=== PATIENT | female | born 1985 | race Caucasian/White ===

== ENCOUNTER 2017-04-08 12:41 | Emergency (ER) | payer OTHER ==
[2017-04-08 13:05] VITALS: BP 118/74
--- NOTE | 2017-04-08 13:09 | UC ---
Throat Pain/Nasal Joseph HPI - HPI Summary HPI Summary: Pt presents with [address] Denies cough, fever, chills, SOB, sinus pain/ pressure/congestion, sick contacts, N/V/D/C. Has not tried anything OTC. No other pain. - History of Current Complaint Chief Complaint: UCRespiratory Stated Complaint: SORE THROAT Hx Obtained From: Patient Hx Last Menstrual Period: 03/13/17 ?: No Onset/Duration: Gradual Onset Severity: Moderate Pain Intensity: 5 Pain Scale Used: 0-10 Numeric Cough: Nonproductive Associated Signs & Symptoms: Positive: Hoarseness. Negative: Drooling, Wheezing - Allergies/Home Medications Allergies/Adverse Reactions: Allergies Allergy/AdvReac Type Severity Reaction Status Date / Time No Known Allergies Allergy Verified 08/25/14 09:19 PMH/Surg Hx/FS Hx/Imm Hx Previously Healthy: Yes - Surgical History Surgical History: Yes Surgery Procedure, Year, and Place: LAP-APPENDECTOMY 09/2013 @ [facility] – [place] - Family History Known Family History: Positive: Unknown - Social History Occupation: Employed Full-time Lives: With Family Alcohol Use: None Substance Use Type: None Smoking Status (MU): Never Smoked Tobacco Type: Cigarettes - Immunization History Most Recent Influenza Vaccination: UNSURE Most Recent Tetanus Shot: 11/27/15 Most Recent Pneumonia Vaccination: NEVER Review of Systems Constitutional: Negative Skin: Negative Eyes: Negative ENT: Sore Throat Respiratory: Negative Cardiovascular: Negative Gastrointestinal: Negative Is Patient Immunocompromised?: No All Other Systems Reviewed And Are Negative: Yes Physical Exam Triage Information Reviewed: Yes Appearance: Well-Appearing, Well-Nourished Vital Signs: Initial Vital Signs Temp 97 F 04/08/17 13:01 Pulse 78 04/08/17 13:01 Resp 16 04/08/17 13:01 BP 118/74 04/08/17 13:01 Pulse Ox 100 04/08/17 13:01 Vital Signs Reviewed: Yes ENT: Positive: Hearing grossly normal, Pharyngeal erythema, TMs normal, Tonsillar swelling, Uvula midline. Negative: Nasal congestion, Nasal drainage, TM bulging, TM dull, TM red, Tonsillar exudate, Hoarse voice Neck: Positive: Supple, Nontender, No Lymphadenopathy Respiratory: Positive: Chest non-tender, Lungs clear, Normal breath sounds, No respiratory distress, No accessory muscle use Cardiovascular: Positive: RRR, No Murmur, Pulses Normal Neurological: Positive: Alert Psychological: Positive: Age Appropriate Behavior Throat Pain/Nasal Course/Dx - Course Course Of Treatment: POC strep positive in office. Amoxicillin 500mg BID for 10 days Assessment/Plan: POC strep positive in office. Amoxicillin 500mg BID for 10 days - Differential Dx/Diagnosis Differential Diagnosis/HQI/PQRI: Influenza, Mononucleosis, Tonsillitis, URI Provider Diagnoses: Strep throat Discharge - Discharge Plan Condition: Stable Disposition: HOME Prescriptions: Amoxicillin PO (*) [Amoxicillin 500 MG CAP*] 500 mg PO Q12H #20 cap Patient Education Materials: Strep Throat (ED) Referrals: Aparna Seo MD [Primary Care Provider] - Additional Instructions: 1) Amoxicillin 500mg twice a day for 10 days. Eat yogurt or take an OTC probiotic to help prevent yeast infection due to the antibiotic. If you develop a fever, SOB, chest pain, new or worsening symptoms - please call our office or go to ED
== END 2017-04-08 13:45 | disposition home or self-care (01) ==
LOC: UCEAST 12:41
DX: J02.0 Streptococcal pharyngitis (principal)
CPT/HCPCS: 87651; 99212; G0463

== ENCOUNTER 2017-05-16 08:46 | Emergency (ER) | payer OTHER ==
[2017-05-16 08:53] VITALS: BP 117/67
--- NOTE | 2017-05-16 08:56 | UC ---
Throat Pain/Nasal Joseph HPI - HPI Summary HPI Summary: 32 y/o female presents to the urgent care c/o sore throat and dry cough since Thursday05/13/2017. Pt reports pain when swallowing is 7/10 associated with fever. she has been taking Ibuprofen 400mg PO to alleviate symptoms. Pt states her son is also sick with similar symptoms, he is in a daycare. Pt denies SOB, ear pain, abdominal pain, DONATO, N/V/D - History of Current Complaint Stated Complaint: SORE THROAT Time Seen by Provider: 05/16/17 08:52 Hx Obtained From: Patient Hx Last Menstrual Period: 03/13/17 Onset/Duration: Gradual Onset, Lasting Days - 3 days, Still Present Severity: Moderate Pain Intensity: 8 Pain Scale Used: 0-10 Numeric Cough: Nonproductive Associated Signs & Symptoms: Positive: Nasal Discharge, Fever - Epiglottits Risk Factors Epiglottis Risk Factors: Negative - Allergies/Home Medications Allergies/Adverse Reactions: Allergies Allergy/AdvReac Type Severity Reaction Status Date / Time No Known Allergies Allergy Verified 05/16/17 08:50 PMH/Surg Hx/FS Hx/Imm Hx Previously Healthy: Yes Endocrine History: Hypothyroidism - Surgical History Surgical History: Yes Surgery Procedure, Year, and Place: [place]EN[place]CTOMY 09/2013 @ [facility] [place] - Family History Known Family History: Positive: Hypertension, Diabetes - Social History Occupation: Employed Full-time Lives: With Family Alcohol Use: None Substance Use Type: None Smoking Status (MU): Never Smoked Tobacco Type: Cigarettes - Immunization History Most Recent Influenza Vaccination: UNSURE Most Recent Tetanus Shot: 11/27/15 Most Recent Pneumonia Vaccination: NEVER Review of Systems Constitutional: Fever Skin: Negative Eyes: Negative ENT: Sore Throat, Nasal Discharge Respiratory: Cough Cardiovascular: Negative Gastrointestinal: Negative Genitourinary: Negative Motor: Negative Neurovascular: Negative Musculoskeletal: Negative Neurological: Negative Psychological: Negative Is Patient Immunocompromised?: No All Other Systems Reviewed And Are Negative: Yes Physical Exam Triage Information Reviewed: Yes - Additional Comments VITAL SIGNS: Reviewed. GENERAL: Patient is a well developed and nourished female who is sitting comfortable in the examining table. Patient is not in any acute respiratory distress. HEAD AND FACE: No signs of trauma. No ecchymosis, hematomas or skull depressions. No sinus tenderness. EYES: PERRLA, EOMI x 2, No injected conjunctiva, no nystagmus. No photophobia. EARS: Hearing grossly intact. Ear canals and tympanic membranes are within normal limits. Nose: erythematous, edematous nasal mucosa with clear nasal discharge MOUTH: Positive pharynx with erythema, no exudates, no palatal petechiae. B/L tonsillar enlargement with no exudate. Uvula in midline. NECK: Supple, trachea is midline, Positive anterior cervical lymphadenopathy, no JVD, no carotid bruit, no c-spine tenderness, neck with full ROM. No meningeal signs, no Kernig's or brudzinskis signs. CHEST: Symmetric, no tenderness at palpation LUNGS: Clear to auscultation bilaterally. No wheezing or crackles. CVS: Regular rate and rhythm, S1 and S2 present, no murmurs or gallops appreciated. ABDOMEN: Soft, non-tender. No signs of distention. No rebound no guarding, and no masses palpated. Bowel sounds are normal. EXTREMITIES: FROM in all major joints, no edema, no cyanosis or clubbing. NEURO: Alert and oriented x 3. No acute neurological deficits. Speech is normal and follows commands. SKIN: Dry and warm Throat Pain/Nasal Course/Dx - Course Course Of Treatment: 32 y/o female presents to the urgent care c/o sore throat and dry cough since Thursday05/13/2017. Pt reports pain when swallowing is 7/ 10 associated with fever. she has been taking Ibuprofen 400mg PO to alleviate symptoms. Pt states her son is also sick with similar symptoms, he is in a daycare. Pt denies SOB, ear pain, abdominal pain, DONATO, N/V/D. Hx obtained. Pt with an URI on physical examination. Rapid strep ordered, result: negative..Pt Rx ibuprofen PO to alleviates symptoms of pain and swelling. Advised on hand washing to avoid spreading. Pt advised to rest, eat well and avoid strenuous exercise. If symptoms do not improve or worsen advised to return to the urgent care or f/u with her PCP for further evaluation and treatment. Pt understood and agreed with plan of care. - Differential Dx/Diagnosis Differential Diagnosis/HQI/PQRI: Influenza, Laryngitis, Mononucleosis, Otitis Media, Pharyngitis, Sinusitis, Tonsillitis, URI Provider Diagnoses: 1-upper respiratory infection Discharge - Discharge Plan Condition: Stable Disposition: HOME Prescriptions: Ibuprofen TAB* [Motrin TAB* 800 MG] 800 mg PO Q6H #20 tab Patient Education Materials: Upper Respiratory Infection (ED) Referrals: Aparna Seo MD [Primary Care Provider] - If Needed Additional Instructions: 1-Please take ibuprofen PO q6-8hrs prn as instructed after meals to alleviate pain and swelling. Increase fluid intake, eat well, rest and avoid strenuous exercise 2-If symptoms do not improve or worsen please return to the urgent care or f/u with your PCP for further evaluation and treatment.
== END 2017-05-16 09:23 | disposition home or self-care (01) ==
LOC: UCEAST 08:46
DX: J06.9 Acute upper respiratory infection, unspecified (principal)
CPT/HCPCS: 87651; 99212; G0463

== ENCOUNTER 2019-02-25 09:04 | Emergency (ER) | payer OTHER ==
[2019-02-25 09:16] VITALS: BP 122/74
--- NOTE | 2019-02-25 09:36 | UC ---
Throat Pain/Nasal Joseph HPI - HPI Summary HPI Summary: ONSET YESTERDAY OF SORE THROAT AND PAIN WITH SWALLOWING WITH SUBJECTIVE FEVER. NECK FEELS SWOLLEN. NO COUGH OR CONGESTION. - History of Current Complaint Chief Complaint: UCRespiratory Stated Complaint: SORE THROAT Time Seen by Provider: 02/25/19 09:15 Hx Obtained From: Patient Hx Last Menstrual Period: 02/25/19 Onset/Duration: Gradual Onset, Lasting Hours, Still Present Severity: Moderate Pain Intensity: 5 Pain Scale Used: 0-10 Numeric Cough: None Associated Signs & Symptoms: Positive: Fever - Allergies/Home Medications Allergies/Adverse Reactions: Allergies Allergy/AdvReac Type Severity Reaction Status Date / Time No Known Allergies Allergy Verified 02/25/19 09:17 Home Medications: Home Medications Iron 18 mg PO DAILY 02/25/19 [History Confirmed 02/25/19] PMH/Surg Hx/FS Hx/Imm Hx Endocrine History: Hypothyroidism - Surgical History Surgical History: Yes Surgery Procedure, Year, and Place: LAP-APPENDECTOMY 09/2013 @ [facility] – [place] - Family History Known Family History: Positive: Hypertension, Diabetes - Social History Alcohol Use: None Substance Use Type: None Smoking Status (MU): Never Smoked Tobacco Type: Cigarettes - Immunization History Most Recent Influenza Vaccination: UNSURE Most Recent Tetanus Shot: 11/27/15 Most Recent Pneumonia Vaccination: NEVER Review of Systems All Other Systems Reviewed And Are Negative: Yes Constitutional: Positive: Fever ENT: Positive: Sore Throat Respiratory: Positive: Negative Cardiovascular: Positive: Negative Gastrointestinal: Positive: Negative Physical Exam Triage Information Reviewed: Yes Appearance: Well-Appearing, No Pain Distress, Well-Nourished Vital Signs: Initial Vital Signs Temp 98 F 02/25/19 09:11 Pulse 88 02/25/19 09:11 Resp 16 02/25/19 09:11 BP 122/74 02/25/19 09:11 Pulse Ox 100 02/25/19 09:11 Laboratory Tests 02/25/19 09:21 Group A Strep Rapid Positive A Eyes: Positive: Conjunctiva Clear ENT: Positive: Hearing grossly normal, Pharyngeal erythema, TMs normal, Tonsillar swelling, Tonsillar exudate Neck: Positive: Supple, Tenderness @ - SPFL CERVICAL LAD, Enlarged Nodes @ - SPFL CERVICAL LAD Respiratory Exam: Normal Cardiovascular Exam: Normal Abdomen Description: Positive: Soft Musculoskeletal: Positive: No Edema Neurological: Positive: Alert Psychological: Positive: Age Appropriate Behavior Skin: Negative: Rashes Throat Pain/Nasal Course/Dx - Differential Dx/Diagnosis Provider Diagnosis: Strep pharyngitis Discharge ED - Sign-Out/Discharge Documenting (check all that apply): Patient Departure All imaging exams completed and their final reports reviewed: No Studies - Discharge Plan Condition: Stable Disposition: HOME Prescriptions: Amoxicillin PO (*) [Amoxicillin 500 MG CAP*] 500 mg PO Q12H #20 cap Patient Education Materials: Strep Throat (ED) Referrals: Aparna Seo MD [Primary Care Provider] - If Needed Additional Instructions: STREP POSITIVE. TAKE ANTIBIOTICS FOR THE FULL 10 DAYS. OTC CHLORASEPTIC OR CEPACOL LOZENGES AND/OR IBUPROFEN FOR SORE THROAT NEEDED ONCE SYMPTOMS RESOLVED - NEW TOOTHBRUSH DO NOT SHARE FOOD, DRINK, UTENSILS - Billing Disposition and Condition Condition: STABLE Disposition: Home
== END 2019-02-25 10:08 | disposition home or self-care (01) ==
LOC: UCEAST 09:04
DX: J02.0 Streptococcal pharyngitis (principal); E03.9 Hypothyroidism, unspecified
CPT/HCPCS: 87651; 99212; G0463

== ENCOUNTER 2019-03-12 10:30 | Emergency (ER) | payer OTHER ==
[2019-03-12 10:40] VITALS: BP 147/93
--- NOTE | 2019-03-12 11:04 | UC ---
Throat Pain/Nasal Joseph HPI - HPI Summary HPI Summary: 33-year-old female presents to urgent care with complaints of onset of sore throat yesterday. She was seen at this facility on 02/25/2018 and diagnosed with strep throat. Started on a ten-day course amoxicillin which she states she completed 5 days ago. States she was feeling better until her symptoms returned yesterday. Associated with some right ear pain. Denies fever, chills , nasal congestion, runny nose, dysphagia, cough, abdominal pain, nausea, or vomiting. - History of Current Complaint Chief Complaint: UCGeneralIllness Stated Complaint: SORE THROAT Time Seen by Provider: 03/12/19 10:46 Hx Last Menstrual Period: 02/28/19 Pain Intensity: 4 - Allergies/Home Medications Allergies/Adverse Reactions: Allergies Allergy/AdvReac Type Severity Reaction Status Date / Time No Known Allergies Allergy Verified 03/12/19 10:32 PMH/Surg Hx/FS Hx/Imm Hx Previously Healthy: Yes Endocrine History: Hypothyroidism - Surgical History Surgical History: Yes Surgery Procedure, Year, and Place: LAP-APPENDECTOMY 09/2013 @ [facility] – [place] - Family History Known Family History: Positive: Hypertension, Diabetes - Social History Occupation: Employed Full-time Lives: With Family Alcohol Use: Occasionally Substance Use Type: None Smoking Status (MU): Never Smoked Tobacco Type: Cigarettes - Immunization History Most Recent Influenza Vaccination: UNSURE Most Recent Tetanus Shot: 11/27/15 Most Recent Pneumonia Vaccination: NEVER Review of Systems All Other Systems Reviewed And Are Negative: Yes Constitutional: Negative: Fever, Chills Skin: Negative: Rash Eyes: Negative: Drainage, Eye Redness ENT: Positive: Sore Throat, Ear Ache. Negative: Nasal Discharge, Sinus Congestion, Sinus Pain/Tenderness Respiratory: Negative: Cough Cardiovascular: Positive: Negative Gastrointestinal: Negative: Abdominal Pain, Vomiting, Nausea Genitourinary: Positive: Negative Musculoskeletal: Positive: Negative Neurological: Positive: Negative Is Patient Immunocompromised?: No Physical Exam - Summary Physical Exam Summary: GENERAL APPEARANCE: Well developed, well nourished, alert and cooperative, and appears to be in no acute distress. EYES: Conjunctiva clear. No drainage. EARS: External auditory canals and tympanic membranes clear, hearing grossly intact. NOSE: No nasal discharge. THROAT: Pharyngeal erythema. 2+ tonsils without exudate or lesions. Uvula midline. NECK: Neck supple, non-tender with mild anterior lymphadenopathy. CARDIAC: Normal S1 and S2. No S3, S4 or murmurs. Rhythm is regular. There is no peripheral edema, cyanosis or pallor. Extremities are warm and well perfused. Capillary refill is less than 2 seconds. Peripheral pulses intact. LUNGS: Clear to auscultation without rales, rhonchi, wheezing or diminished breath sounds. ABDOMEN: Positive bowel sounds. Soft, nondistended, nontender. No guarding or rebound. No masses or hepatosplenomegally. MUSKULOSKELETAL: ROM intact to all extremities. No joint erythema or tenderness. Normal muscular development. Normal gait. SKIN: Skin normal color, texture and turgor with no lesions or eruptions. Triage Information Reviewed: Yes Vital Signs: Initial Vital Signs Temp 97.5 F 03/12/19 10:37 Pulse 79 03/12/19 10:37 Resp 18 03/12/19 10:37 BP 147/93 03/12/19 10:37 Pulse Ox 100 03/12/19 10:37 Vital Signs Reviewed: Yes Throat Pain/Nasal Course/Dx - Course Course Of Treatment: 33-year-old female presents to urgent care with complaints of onset of sore throat yesterday. She was seen at this facility on 02/25/2018 and diagnosed with strep throat. Started on a ten-day course amoxicillin which she states she completed 5 days ago. States she was feeling better until her symptoms returned yesterday. Associated with some right ear pain. Denies fever, chills , nasal congestion, runny nose, dysphagia, cough, abdominal pain, nausea, or vomiting. Afebrile. Hypertensive as well as signs stable. Patient had pharyngeal erythema with 2+ tonsils without exudate or lesions, mild anterior cervical lymphadenopathy, and otherwise unremarkable exam. Rapid strep test was positive. Results reviewed with the patient. Will treat her for recurrence of strep pharyngitis with Augmentin 875 mg twice a day 10 days. She is to follow-up with her primary care provider in 3-5 days if symptoms are not improving. I have recommended that she follow-up with her primary care provider regardless in 2 weeks for recheck of her symptoms and possible retesting. Anticipatory guidance and warning symptoms were reviewed with the patient. Verbalizes understanding and agrees with plan of care. - Differential Dx/Diagnosis Differential Diagnosis/HQI/PQRI: Mononucleosis, Pharyngitis, Tonsillitis Provider Diagnosis: Strep pharyngitis Discharge ED - Sign-Out/Discharge Documenting (check all that apply): Patient Departure All imaging exams completed and their final reports reviewed: No Studies - Discharge Plan Condition: Stable Disposition: HOME Prescriptions: Amoxicillin/Clavulanate TAB* [Augmentin TAB 875*] 875 mg PO BID #20 tab Patient Education Materials: Strep Throat (ED) Referrals: Aparna Seo MD [Primary Care Provider] - Additional Instructions: Your rapid strep test in the clinic today was positive. We will start you on an antibiotic to treat the infection. Start Augmentin 875 mg 1 tab twice daily for 10 days. Take with food to avoid upset stomach. Be sure to complete the entire course even if feeling better. After you have been on antibiotics for 3 days, throw out your toothbrush and replace with a new one to prevent reinfection. Drink plenty of fluids to avoid dehydration especially if you are running any fever. Use salt water gargles several times a day. Take over the counter acetaminophen (Tylenol) or ibuprofen (Advil, Motrin) according to directions as needed for pain or fever. You may also use Chloraseptic spray or Cepacol lonzenges according to directions which contain a numbing medication and can provide some temporary relief from your sore throat. Return here or follow up with your primary care provider in 3-5 days if symptoms do not improve. Seek immediate medical attention in the emergency room if you have fever greater than 100.5 F despite taking acetaminophen or ibuprofen, are unable to swallow or develop drooling, are unable to open your mouth fully, are unable to eat or drink, have pain that is not relieved with over the counter pain medication, have any difficulty breathing, or any worsening of symptoms. - Billing Disposition and Condition Condition: STABLE Disposition: Home
== END 2019-03-12 11:15 | disposition home or self-care (01) ==
LOC: UCEAST 10:30
DX: J02.0 Streptococcal pharyngitis (principal); H92.01 Otalgia, right ear
CPT/HCPCS: 87651; 99212; G0463

== ENCOUNTER 2019-08-03 10:03 | Emergency (ER) | payer OTHER ==
[2019-08-03 11:00] VITALS: BP 115/77
[2019-08-03 11:34] LABS: Influenza A Molecular POSITIVE (Negative)
--- NOTE | 2019-08-03 12:45 | UC ---
FLU HPI - HPI Summary HPI Summary: ONSET YESTERDAY OF BODY ACHES, FEVER, CHILLS, COUGH, CONGESTION AND FATIGUE. POSITIVE FLU EXPOSURE AT HOME. IS REQUESTING FLU SWAB. NO FLU SHOT THIS SEASON. - History of Current Complaint Chief Complaint: UCGeneralIllness Stated Complaint: FLU SYMPTOMS Time Seen by Provider: 08/03/19 12:23 Hx Obtained From: Patient Hx Last Menstrual Period: 07/11/19 Onset/Duration: Gradual Onset, Lasting Days - 1 DAY, Still Present Severity Currently: Mild Severity Initially: Mild Pain Intensity: 1 Pain Scale Used: 0-10 Numeric Associated Signs & Symptoms: Positive: Fever, Myalgia, Cough, Nasal Congestion. Negative: Headache - Allergy/Home Medications Allergies/Adverse Reactions: Allergies Allergy/AdvReac Type Severity Reaction Status Date / Time No Known Allergies Allergy Verified 08/03/19 10:54 Home Medications: Home Medications Levothyroxine TAB* [Synthroid 100 MCG TAB*] 225 mcg PO DAILY 09/13/13 [History Confirmed 08/03/19] Iron 18 mg PO DAILY 02/25/19 [History Confirmed 08/03/19] Oseltamivir CAP* [Tamiflu CAP*] 75 mg PO BID #10 cap 08/03/19 [Rx] Progesterone, Micronized [Progesterone] 100 mg PO DAILY 08/03/19 [History Confirmed 08/03/19] PMH/Surg Hx/FS Hx/Imm Hx Endocrine History: Hypothyroidism - Surgical History Surgical History: Yes Surgery Procedure, Year, and Place: LAP-APPENDECTOMY 09/2013 @ [facility] – [place] - Family History Known Family History: Positive: Hypertension, Diabetes - Social History Alcohol Use: None Substance Use Type: None Smoking Status (MU): Never Smoked Tobacco Type: Cigarettes - Immunization History Most Recent Influenza Vaccination: UNSURE Most Recent Tetanus Shot: 11/27/15 Most Recent Pneumonia Vaccination: NEVER Review of Systems All Other Systems Reviewed And Are Negative: Yes Constitutional: Positive: Fever, Chills, Fatigue ENT: Positive: Nasal Discharge Respiratory: Positive: Cough Cardiovascular: Positive: Negative Gastrointestinal: Positive: Nausea Musculoskeletal: Positive: Myalgia Neurological/Mental Status: Negative: Headache Physical Exam Triage Information Reviewed: Yes Appearance: No Pain Distress, Well-Nourished, Ill-Appearing - FATIGUED Vital Signs: Initial Vital Signs Temp 98.6 F 08/03/19 10:56 Pulse 89 08/03/19 10:56 Resp 16 08/03/19 10:56 BP 115/77 08/03/19 10:56 Pulse Ox 100 08/03/19 10:56 Laboratory Tests 08/03/19 11:30 Influenza A (Rapid) Positive H Vital Signs Reviewed: Yes Eyes: Positive: Conjunctiva Clear ENT: Positive: Hearing grossly normal, Pharynx normal, TMs normal Neck: Positive: Supple, Nontender, No Lymphadenopathy Respiratory Exam: Normal Cardiovascular Exam: Normal Abdomen Description: Positive: Soft Musculoskeletal: Positive: No Edema Neurological: Positive: Alert Psychological: Positive: Age Appropriate Behavior Skin: Negative: Rashes Flu Course/Dx - Course Course Of Treatment: SWAB POSITIVE FOR INFLUENZA A. TAMIFLU TWICE DAILY FOR 5 DAYS. REST, HYDRATE, OTC MEDS NEEDED. FOLLOW-UP IF NOT IMPROVING EXPECTED. - Differential Dx/Diagnosis Provider Diagnosis: Influenza A Discharge ED - Sign-Out/Discharge Documenting (check all that apply): Patient Departure All imaging exams completed and their final reports reviewed: No Studies - Discharge Plan Condition: Stable Disposition: HOME Prescriptions: Oseltamivir CAP* [Tamiflu CAP*] 75 mg PO BID #10 cap Patient Education Materials: Influenza (ED) Referrals: Janice Clark MD [Primary Care Provider] - If Needed Additional Instructions: SWAB POSITIVE FOR INFLUENZA A. TAMIFLU TWICE DAILY FOR 5 DAYS. OTC MEDS NEEDED FOR FEVER, BODY ACHES. STAY WELL HYDRATED AND RESTED. SEEK FOLLOW-UP IF YOU ARE NOT IMPROVING EXPECTED. - Billing Disposition and Condition Condition: STABLE Disposition: Home
== END 2019-08-03 12:45 | disposition home or self-care (01) ==
LOC: UCEAST 10:03
DX: J10.1 Influenza due to other identified influenza virus with other respiratory manifestations (principal); E03.9 Hypothyroidism, unspecified; Z79.890 Hormone replacement therapy
CPT/HCPCS: 99212; G0463